=== PATIENT | female | born 1930 | race Caucasian/White ===

== ENCOUNTER → 2016-10-05 | Outpatient (CLI) | payer MEDICARE, BC ==
[2016-10-05 07:16] LABS: INR 2.42 (0.76-1.04); PROTHROMBIN TIME 26.4 SEC (9.31-12.49)
[2016-10-05 07:33] LABS: ANION GAP 14 MEQ/L (5-15); BUN/CREATININE RATIO 31 RATIO (6-26); CALCIUM 9.4 MG/DL (8.4-10.2); CHLORIDE 104 MEQ/L (98-107); CO2 - CARBON DIOXIDE 28 MEQ/L (22-30); CREATININE 0.7 MG/DL (0.7-1.2); GLOMERULAR FILTRATION RATE 79; GLUCOSE 135 MG/DL (65-110); SODIUM 146 MEQ/L (134-144)
== END ==
LOC: LABNH.PM 02:13
PROVIDERS: ATTEND Family Medicine
DX: R35.8 Other polyuria (principal); Z79.01 Long term (current) use of anticoagulants
CPT/HCPCS: 36415; 80048; 85610; P9604

== ENCOUNTER → 2016-10-07 | Outpatient (CLI) | payer MEDICARE, BC | LOC: LABN.PM 20:38 | PROVIDERS: ATTEND Family Medicine | DX: E11.9 Type 2 diabetes mellitus without complications (principal) | CPT/HCPCS: 82043 ==

== ENCOUNTER → 2016-11-02 | Outpatient (CLI) | payer MEDICARE, BC ==
[2016-11-02 07:53] LABS: INR 2.87 (0.76-1.04); PROTHROMBIN TIME 31.3 SEC (9.31-12.49)
== END ==
LOC: LABNH.PM 00:40
PROVIDERS: ATTEND Family Medicine
DX: Z79.01 Long term (current) use of anticoagulants (principal)
CPT/HCPCS: 36415; 85610; P9604